=== PATIENT | female | born 1985 | race Caucasian/White ===

== ENCOUNTER 2025-07-30 15:26 | Emergency (ER) | payer OTHER ==
[~2025-07-30] VITALS: Ht 165.1 cm; Wt 127.3 kg
[2025-07-30 15:32] VITALS: TEMP 98.1
[2025-07-30 16:25] LABS: PLATELET COUNT (AUTO) 222 K/uL (150-450); RED BLOOD CELL COUNT(AUTO) 4.64 MIL/uL (4.00-5.20); RED CELL DISTRIBUTION WIDTH 14.4 % (11.5-14.5); WHITE BLOOD COUNT (AUTO) 7.2 K/uL (4.5-11.0)
[2025-07-30 16:32] LABS: CALCIUM, TOTAL 9.0 mg/dL (8.8-10.5); CREATININE 0.61 mg/dL (0.60-1.30); GLOMERULAR FILTR. RATE CALC > 60 mL/min (>60); GLUCOSE,RANDOM 96 mg/dL (70-110); SODIUM SERUM 139 mmol/L (136-145); UREA NITROGEN, BLOOD 19 mg/dL (7-18)
[2025-07-30] MEDS: ONDANSETRON HCL 4 MG/2 ML VIAL IVP ONE (17:07)
[2025-07-30] MEDS: KETOROLAC TROMETHAMINE 30 MG/ML VIAL IVP ONE (17:07)
[2025-07-30] MEDS: METHOCARBAMOL 100 MG/ML 10 ML VIAL IVP ONE (17:07)
[2025-07-30] MEDS: ACETAMINOPHEN/CODEINE 300-30 MG TABLET PO ONE (17:07)
[2025-07-30] MEDS ORDERED: METH-659 PO (18:15)
[2025-07-30] MEDS ORDERED: ACET-66 PO (18:15)
[2025-07-30] MEDS ORDERED: IBUP-1554 PO (18:15)
[2025-07-30] MEDS: POTASSIUM CHLORIDE 20 MEQ ER TABLET PO ONE (18:18)
[2025-07-30 18:35] VITALS: BP 135/78; PULSE 81; RESP 17; O2SAT 97
== END 2025-07-30 19:32 | disposition home or self-care (01) ==
LOC: EMS 15:26
DX: S39.012A Strain of muscle, fascia and tendon of lower back, initial encounter (principal); E87.6 Hypokalemia; Z90.49 Acquired absence of other specified parts of digestive tract; X58.XXXA Exposure to other specified factors, initial encounter; Y93.89 Activity, other specified; Y92.89 Other specified places as the place of occurrence of the external cause; Y99.8 Other external cause status
CPT/HCPCS: 99284; 96374; 96375; 80048; 84703; 85025; 36415; J1885; J2405; J2800